=== PATIENT | female | born 1960 | race Caucasian/White ===

== ENCOUNTER 2017-06-19 14:38 | Emergency (ER) | payer OTHER ==
[~2017-06-19] VITALS: Ht 167.6 cm; Wt 73.5 kg
[2017-06-19 14:43] VITALS: Ht 167.6 cm; Wt 73.5 kg
[2017-06-19] MEDS ORDERED: IBUPROFEN 600 MG TAB PO ONE (17:00)
[2017-06-19 17:42] LABS: URINE BLOOD (Dip) POC Trace-lysed (NEGATIVE)
[2017-06-19] MEDS ORDERED: INSULIN LISPRO 100 UNIT/ML VIAL SC STA (17:50)
[2017-06-19] MEDS ORDERED: KETOROLAC 15 MG INJ IV STA (17:53)
[2017-06-19] MEDS ORDERED: CEFTRIAXONE 1 GM/50 ML (PMX) 50 ML IVPB STA (17:53)
[2017-06-19] MEDS ORDERED: TRIMETHOPRIM/SULFAMETHOX (DS) TAB PO ONE (18:00)
[2017-06-19] MEDS ORDERED: CEPH-443 PO (18:45)
[2017-06-19] MEDS ORDERED: IBUP-1542 PO (18:45)
[2017-06-19] MEDS ORDERED: METF500T4 PO (18:45)
[2017-06-19] MEDS ORDERED: FLUC150T17 PO (18:45)
--- NOTE | 2017-06-19 18:49 | ERD ---
ER Documentation Chief Complaint Date/Time DATE: 06/19/17 TIME: 18:47 Chief Complaint Complains of an earache and sorethroat x 3 days HPI This 56-year-old female presents with multiple complaints. She presents with sore throat and right ear pain for last 3 days. She has tactile fevers at home. She also has some suprapubic abdominal pain and dysuria and burning for she denies vomiting, chest pain, shortness of breath. She is a history of diabetes and is out of her medications. She takes Glucophage at home. ROS All systems reviewed and are negative except as per history of present illness. Medications Home Meds Active Scripts Metformin* (Glucophage*) 500 Mg Tab, 500 MG PO BID, #60 TAB Prov:BRIDGET DOYLE MD 06/19/17 Fluconazole* (Diflucan*) 150 Mg Tablet, 150 MG PO ONCE, #1 TAB Prov:BRIDGET DOYLE MD 06/19/17 Ibuprofen* (Motrin*) 600 Mg Tab, 600 MG PO Q6, #15 TAB Prov:BRIDGET DOYLE MD 06/19/17 Cephalexin* (Keflex*) 500 Mg Capsule, 500 MG PO QID for 5 Days, CAP Prov:BRIDGET DOYLE MD 06/19/17 Allergies Allergies: Coded Allergies: No Known Allergy (Unverified , 06/19/17) PMhx/Soc Medical and Surgical Hx: pt denies Medical Hx, pt denies Surgical Hx History of Surgery: No Anesthesia Reaction: No Hx Neurological Disorder: No Hx Respiratory Disorders: No Hx Cardiac Disorders: No Hx Psychiatric Problems: No Hx Miscellaneous Medical Probl: No Hx Alcohol Use: No Hx Substance Use: No Hx Tobacco Use: No Smoking Status: Never smoker Physical Exam Vitals Vital Signs Date Time Temp Pulse Resp B/P Pulse Ox O2 Delivery O2 Flow Rate FiO2 06/19/17 14:43 97.3 84 20 142/65 97 Physical Exam Const: [] Alert, [id number] per Head: Atraumatic Eyes: Normal Conjunctiva ENT: Normal External Ears, Nose and Mouth. TM occluded by cerumen. Neck: Full range of motion..~ No meningismus. Resp: Clear to auscultation bilaterally Cardio: Regular rate and rhythm, no murmurs Abd: Soft, no suprapubic tenderness left lower quadrant tenderness. No tenderness at McBurney's point no Feldman sign and no rebound., non distended. Normal bowel sounds Skin: No petechiae or rashes Back: No midline or flank tenderness Ext: No cyanosis, or edema Neur: Awake and alert Psych: Normal Mood and Affect Results 24 hrs Laboratory Tests Test 06/19/17 17:49 Bedside Urine pH (LAB) 5.0 Bedside Urine Protein (LAB) 1+ Bedside Urine Glucose (UA) 0.50% Bedside Urine Ketones (LAB) Negative Bedside Urine Blood Trace-lysed Bedside Urine Nitrite (LAB) Negative Bedside Urine Leukocyte Esterase (L Negative Bedside Glucose 328mg/dL Current Medications Medications (Trade) Dose Ordered Sig/Gabe Route PRN Reason Start Time Stop Time Status Last Admin Dose Admin Ibuprofen (Motrin) 600 mg ONCE ONCE PO 06/19/17 17:00 06/19/17 17:01 DC 06/19/17 17:16 Insulin Human Lispro (Humalog) 8 unit ONCE STAT SC 06/19/17 17:50 06/19/17 17:54 DC 06/19/17 18:13 Ketorolac Tromethamine 15 mg 15 mg ONCE STAT IV 06/19/17 17:53 06/19/17 18:41 DC 06/19/17 18:05 Ceftriaxone Sodium (Rocephin) 50 ml @ 100 mls/hr ONCE STAT IVPB 06/19/17 17:53 06/19/17 18:41 DC 06/19/17 18:04 Trimethoprim/ Sulfamethoxazole (Bactrim (Ds)) 1 tab ONCE ONCE PO 06/19/17 18:00 06/19/17 18:41 DC 06/19/17 18:04 Procedures/MDM Positive leukocytes ketones.. Glucose was 327. Patient is given Humalog 8 units subcutaneously. There was a loss. TM is red with decreased light reflex after lavage. Patient presents with signs of otitis media cerumen impaction, lower abdominal pain and signs of UTI additionally she has hyperglycemia. She will be given refills are Glucophage we will treat her infection with Keflex and instructions for primary care follow-up and return precautions. Patient is advised to follow-up with a primary doctor for diabetes management. Current signs or symptoms do not suggest acute abdomen, meningitis, no signs of pneumonia, ketoacidosis, additional complications related to presenting complaints. The patient was stable with no new complaints during the ER course. Clinically, there is no current evidence to suggest meningitis, sepsis, acute abdomen, pneumonia, acute coronary syndrome, pulmonary embolism, or any other emergent condition appearing to require further evaluation or hospitalization. The patient should certainly return for any new or worsening symptoms per the aftercare instructions. They should otherwise follow-up with her primary care doctor for reevaluation this week. Disclaimer: Inadvertent spelling and grammatical errors are likely due to EHR/dictation software use and do not reflect on the overall quality of patient care. Also, please note that the electronic time recorded on this note does not necessarily reflect the actual time of the patient encounter. Departure Diagnosis: Primary Impression: Hyperglycemia Additional Impression: Right ear pain Condition: Stable Patient Instructions: Hyperglycemia (High Blood Sugar), Understanding Urinary Tract Infections (UTIs), Cerumen Impaction, Home Care, Otitis Media, Abx Tx ( Adult) Additional Instructions: ORINA TIENE INFECCIO. AZUCAR ES CHAPINCITO. VAMOS A TRATAR PARA UNGO TAMBIEN. Examines normal hoy. Cheque otro vez con brewer doctor primario en el proximo gonzales or regresa para mas o nueva simptomas. BRIDGET DOYLE MD Jun 19, 2017 18:49
[2017-06-19 19:04] VITALS: BP 135/61; PULSE 82; RESP 16; TEMP 98.4
== END 2017-06-19 19:05 | disposition home or self-care (01) ==
LOC: FTE 14:38
DX: E11.65 Type 2 diabetes mellitus with hyperglycemia (principal); J02.9 Acute pharyngitis, unspecified; Z79.84 Long term (current) use of oral hypoglycemic drugs
CPT/HCPCS: 81003; 82962; 96372; 96374; 96375; J0696; J1815; J1885; Z7502; Z7610

== ENCOUNTER 2017-07-27 20:37 | Emergency (ER) | payer OTHER ==
[~2017-07-27] VITALS: Ht 162.6 cm; Wt 71.5 kg
[~2017-07-27 20:37] MED LIST: CEPH-443 PO; FLUC150T17 PO; IBUP-1542 PO; METF500T4 PO
[2017-07-27 20:44] VITALS: Ht 162.6 cm; Wt 71.5 kg
[2017-07-27] MEDS ORDERED: ONDANSETRON (ODT) 4 MG TAB ODT STA (21:36)
[2017-07-27] MEDS ORDERED: ACETAMINOPHEN 325 MG TAB PO ONE (22:00)
--- NOTE | 2017-07-27 22:17 | RADRPT ---
PROCEDURE: CT Brain without contrast. CLINICAL INDICATION: Trauma after fall TECHNIQUE: A CT of the brain was performed on a [employer] CT scanner utilizing axial imaging f rom the skull base through the vertex without IV contrast. Multiplanar reformatted images were made . Images were reviewed on a PACS workstation. The CTDIvol is 45.01 mGy and the DLP is 630.20 mGycm . One of the following 3 dose reduction techniques were used during this CT examination: 1) Automated exposure control 2) Adjustment of the mA +/- kV according to patient size or 3) Use of iterative reconstruction technique COMPARISON: None available FINDINGS: There is no intracranial hemorrhage, mass effect, or midline shift. No extra-axial fluid collection is seen. The ventricles and sulci are normal in size and configuration. The density of the brain is normal, and the potter white matter differentiation appears well-preserved. The visualized scalp and calvarium are normal. The bilateral orbits are normal. The bilateral parana colin sinuses, mastoid air cells and middle ear cavities are clear. IMPRESSION: 1. No evidence of acute intracranial hemorrhage, infarcts, or acute intracranial pathology. 2. Normal noncontrast head CT. RPTAT: [facility] .Katheryn Ulloa MD, Date Time Electronically viewed and signed by .Katheryn Ulloa MD, MD on 07/27/2017 22:17 .C/
--- NOTE | 2017-07-27 22:17 | RADRPT ---
PROCEDURE: CT Brain without contrast. CLINICAL INDICATION: Trauma after fall TECHNIQUE: A CT of the brain was performed on a [employer] CT scanner utilizing axial imaging f rom the skull base through the vertex without IV contrast. Multiplanar reformatted images were made . Images were reviewed on a PACS workstation. The CTDIvol is 45.01 mGy and the DLP is 630.20 mGycm . One of the following 3 dose reduction techniques were used during this CT examination: 1) Automated exposure control 2) Adjustment of the mA +/- kV according to patient size or 3) Use of iterative reconstruction technique COMPARISON: None available FINDINGS: There is no intracranial hemorrhage, mass effect, or midline shift. No extra-axial fluid collection is seen. The ventricles and sulci are normal in size and configuration. The density of the brain is normal, and the potter white matter differentiation appears well-preserved. The visualized scalp and calvarium are normal. The bilateral orbits are normal. The bilateral parana colin sinuses, mastoid air cells and middle ear cavities are clear. IMPRESSION: 1. No evidence of acute intracranial hemorrhage, infarcts, or acute intracranial pathology. 2. Normal noncontrast head CT. RPTAT: [facility] .Katheryn Ulloa MD, Date Time Electronically viewed and signed by .Katheryn Ulloa MD, MD on 07/27/2017 22:17 .C/
--- NOTE | 2017-07-27 22:17 | RADRPT ---
PROCEDURE: CT Brain without contrast. CLINICAL INDICATION: Trauma after fall TECHNIQUE: A CT of the brain was performed on a [employer] CT scanner utilizing axial imaging f rom the skull base through the vertex without IV contrast. Multiplanar reformatted images were made . Images were reviewed on a PACS workstation. The CTDIvol is 45.01 mGy and the DLP is 630.20 mGycm . One of the following 3 dose reduction techniques were used during this CT examination: 1) Automated exposure control 2) Adjustment of the mA +/- kV according to patient size or 3) Use of iterative reconstruction technique COMPARISON: None available FINDINGS: There is no intracranial hemorrhage, mass effect, or midline shift. No extra-axial fluid collection is seen. The ventricles and sulci are normal in size and configuration. The density of the brain is normal, and the potter white matter differentiation appears well-preserved. The visualized scalp and calvarium are normal. The bilateral orbits are normal. The bilateral parana colin sinuses, mastoid air cells and middle ear cavities are clear. IMPRESSION: 1. No evidence of acute intracranial hemorrhage, infarcts, or acute intracranial pathology. 2. Normal noncontrast head CT. RPTAT: [facility] .Katheryn Ulloa MD, Date Time Electronically viewed and signed by .Katheryn Ulloa MD, MD on 07/27/2017 22:17 .C/
--- NOTE | 2017-07-27 23:17 | RADRPT ---
PROCEDURE: X-ray sacrum and coccyx. CLINICAL INDICATION: Pain and coccyx status post fall. TECHNIQUE: 3 views of the sacrum and coccyx. COMPARISON: None FINDINGS: No acute fracture or dislocation. Mild dorsal osseous process over the distal sacrum versus proximal coccyx, otherwise nonspecific. This may represent the sequela of remote trauma. If there is strong persistent concern for sacrum or coccygeal fracture consider CT correlation. Soft tissues are unremarkable. Symmetric moderate degenerative changes in the bilateral sacroiliac joints. IMPRESSION: 1. No acute fracture. 2. Symmetric moderate degenerative changes in the bilateral sacroiliac joints. RPTAT: [facility] Date Time Electronically viewed and signed by Physician Cabrera on 07/27/2017 23:17 RS/
[2017-07-27] MEDS ORDERED: ACET325T33 PO (23:29)
[2017-07-28 00:20] VITALS: BP 128/59; PULSE 69; RESP 20
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
== END 2017-07-28 00:21 | disposition home or self-care (01) ==
LOC: FTE 20:37
DX: R51 Headache (principal)
CPT/HCPCS: 70450; 72220; Z7502; Z7610

== ENCOUNTER 2017-09-02 16:18 | Emergency (ER) | payer SELFPAY ==
[~2017-09-02] VITALS: Wt 67.9 kg
[~2017-09-02 16:18] MED LIST changes: +ACET325T33 PO
== END 2017-09-02 19:04 | disposition left against medical advice (07) ==
LOC: E/R 16:18
DX: Z53.21 Procedure and treatment not carried out due to patient leaving prior to being seen by health care provider (principal)
CPT/HCPCS: 82962

== ENCOUNTER 2018-06-18 19:30 | Emergency (ER) | END 2018-06-19 00:15 | disposition home or self-care (01) ==